=== PATIENT | male | born 1995 | race American Indian/Alaskan Native ===

== ENCOUNTER 2017-08-22 14:56 | Emergency (ER) | payer OTHER ==
[2017-08-22 15:22] VITALS: BP 114/71
[2017-08-22] MEDS ORDERED: MOTRIN PO ONE (16:01)
[2017-08-22] MEDS ORDERED: ZITHROMAX PO ONE (16:13)
[2017-08-22] MEDS ORDERED: ROCEPHIN IM ONE (16:13)
[2017-08-22] MEDS ORDERED: XYLOCAINE 1% MPF 5 mL INFILTRATI ONE (16:13)
[2017-08-22 16:34] LABS: Bilirubin,Urine NEG (Negative); Blood,Urine NEG (Negative); Color,Urine Yellow (Yellow); Mucus,Urine 3+ /HPF
--- NOTE | 2017-08-22 17:30 | Emergency Department Report ---
Chief Complaint: Urogenital-Male Stated Complaint: DISCHARGE Time Seen by Provider: 08/22/17 15:46 - HPI History of Present Illness: The patient's 21-year-old male presents for evaluation of dysuria and penile discharge. The patient reports 2-3 days of penile discharge and burning pain with urination after unprotected sexual intercourse recently. The patient denies fever, chills, night sweats, abdominal pain, testicular pain or swelling , hematuria, flank pain, inability to pass flatus. - Exam Vital Signs: Vital Signs 08/22/17 15:19 Temperature 98.6 F Pulse Rate 67 Respiratory 16 Rate Blood Pressure 114/71 O2 Sat by Pulse 97 Oximetry MSE screening note: Focused history and physical exam performed. Due to findings the following was ordered: ED Disposition for MSE Condition: Stable Referrals: PRIMARY CARE, [Primary Care Provider] - 3-5 Days
--- NOTE | 2017-08-22 18:07 | Emergency Department Report ---
ED Male HPI - General Chief complaint: Urogenital-Male Stated complaint: DISCHARGE Time Seen by Provider: 08/22/17 15:46 Source: patient Mode of arrival: Ambulatory Limitations: No Limitations - History of Present Illness Initial comments: The patient's 21-year-old male presents for evaluation of dysuria and penile discharge. The patient reports 2-3 days of penile discharge and burning pain with urination after unprotected sexual intercourse recently. The patient denies fever, chills, night sweats, abdominal pain, testicular pain or swelling , hematuria, flank pain, inability to pass flatus. MD Complaint: penile discharge -: days(s) (3) Worsens with: urination - Related Data Sexually active: Yes Previous Rx's Medication Instructions Recorded Last Taken Type Doxycycline [Vibramycin CAP] 100 mg PO Q12HR 10 Days #20 capsule 08/22/17 Unknown Rx metroNIDAZOLE [Flagyl] 500 mg PO Q8HR #21 tablet 08/22/17 Unknown Rx Allergies Allergy/AdvReac Type Severity Reaction Status Date / Time No Known Allergies Allergy Unverified 08/22/17 15:21 ED Review of Systems ROS: Stated complaint: DISCHARGE Other details as noted in HPI Constitutional: denies: chills, fever Eyes: denies: eye pain, eye discharge, vision change ENT: denies: ear pain, throat pain Respiratory: denies: cough, shortness of breath, wheezing Cardiovascular: denies: chest pain, palpitations Endocrine: no symptoms reported Gastrointestinal: denies: abdominal pain, nausea, diarrhea Genitourinary: discharge (penile). denies: urgency, dysuria Musculoskeletal: denies: back pain, joint swelling, arthralgia Skin: denies: rash, lesions Neurological: denies: headache, weakness, paresthesias Psychiatric: denies: anxiety, depression Hematological/Lymphatic: denies: easy bleeding, easy bruising ED Past Medical Hx - Past Medical History Previous Medical History?: No - Surgical History Past Surgical History?: No - Social History Smoking Status: Current Some Day Smoker Substance Use Type: None - Medications Home Medications: Home Medications Medication Instructions Recorded Confirmed Last Taken Type Doxycycline [Vibramycin CAP] 100 mg PO Q12HR 10 Days #20 capsule 08/22/17 Unknown Rx metroNIDAZOLE [Flagyl] 500 mg PO Q8HR #21 tablet 08/22/17 Unknown Rx ED Physical Exam - General Limitations: No Limitations General appearance: alert, in no apparent distress - Head Head exam: Present: atraumatic, normocephalic - Eye Eye exam: Present: normal appearance - ENT ENT exam: Present: mucous membranes moist - Neck Neck exam: Present: normal inspection - Respiratory Respiratory exam: Present: normal lung sounds bilaterally. Absent: respiratory distress - Cardiovascular Cardiovascular Exam: Present: regular rate, normal rhythm. Absent: systolic murmur, diastolic murmur, rubs, gallop - GI/Abdominal GI/Abdominal exam: Present: soft, normal bowel sounds - exam: Present: urethral discharge, other (no lymphadenopathy in the groin area) - Extremities Exam Extremities exam: Present: normal inspection - Back Exam Back exam: Present: normal inspection - Neurological Exam Neurological exam: Present: alert, oriented X3 - Psychiatric Psychiatric exam: Present: normal affect, normal mood - Skin Skin exam: Present: warm, dry, intact, normal color. Absent: rash ED Course Vital Signs 08/22/17 15:19 Temperature 98.6 F Pulse Rate 67 Respiratory 16 Rate Blood Pressure 114/71 O2 Sat by Pulse 97 Oximetry ED Medical Decision Making - Medical Decision Making History evaluated by this provider as well as Dr. Cedillo. Urinalysis reports that patient had significant amount of wbc's with no rbc's. Discussed the patient that he has been treated for STDs. Discussed the patient is to inform his partner that he's been tested and treated. Patient returned back to medical records with his ID and 5-7 days to obtain his culture results. Patient verbalized understanding Critical care attestation.: If time is entered above; I have spent that time in minutes in the direct care of this critically ill patient, excluding procedure time. ED Disposition Clinical Impression: Possible exposure to STD, Urine leukocytes, Penile discharge Disposition: DC-01 TO HOME OR SELFCARE Is pt being admited?: No Does the pt Need Aspirin: No Condition: Stable Instructions: Sexually Transmitted Diseases (ED), Safe Sex (ED) Additional Instructions: Complete antibiotics as prescribed. Inform your partner has he been tested and treated for STDs. Please bring her ID to medical records to obtain her culture results. Prescriptions: Doxycycline [Vibramycin CAP] 100 mg PO Q12HR 10 Days #20 capsule metroNIDAZOLE [Flagyl] 500 mg PO Q8HR #21 tablet Referrals: PRIMARY CARE, [Primary Care Provider] - 3-5 Days Forms: Work/School Release Form(ED)
== END 2017-08-22 18:19 | disposition home or self-care (01) ==
LOC: ED 14:56
DX: D72.828 Other elevated white blood cell count (principal); R36.9 Urethral discharge, unspecified; F17.200 Nicotine dependence, unspecified, uncomplicated
CPT/HCPCS: 81001; 96372; 99283; J0696